=== PATIENT | female | born 1970 | race Caucasian/White ===

== ENCOUNTER 2019-11-07 16:39 | Emergency (ER) | payer MEDICAID ==
[~2019-11-07] VITALS: Ht 152.4 cm; Wt 79.8 kg
[2019-11-07 16:43] VITALS: Ht 152.4 cm; Wt 79.8 kg
[2019-11-07 19:02] VITALS: BP 138/76
== END 2019-11-07 19:02 | disposition home or self-care (01) ==
LOC: ED 16:39
DX: J18.9 Pneumonia, unspecified organism (principal)